=== PATIENT | female | born 1975 | race Hispanic/Latino ===

== ENCOUNTER → 2019-04-01 | Outpatient (CLI) | payer BC ==
--- NOTE | 2019-04-01 10:40 | Diagnostic Imaging Report ---
Abdominal ultrasound. History: Abdominal pain. Comparison: None available. Discussion: Transverse and longitudinal images of the abdomen were obtained demonstrating a liver of normal size and echogenicity measuring 12.2 cm in length. The portal vein is patent with hepatopetal flow and is within normal limits measuring 8 mm in diameter. The biliary tree is within normal limits with the common bile duct measuring 2 mm in diameter. The gallbladder is normal without evidence of stones, wall thickening, or pericholecystic fluid. The sonographic Forte's sign was negative. The kidneys are normal in size and echogenicity bilaterally without evidence of hydronephrosis, stones, or mass. The right kidney measures 11.4 cm and the left kidney measures 10.8 cm in length. The spleen is normal in size and appearance measuring 10 cm in length. The pancreatic head and body are visualized and are normal in appearance. The abdominal aorta and IVC are within normal limits. There is no evidence of free fluid. IMPRESSION: Normal abdominal ultrasound. Signed by: Hank Baugh on 04/01/2019 10:37 AM
== END ==
LOC: US 09:29
PROVIDERS: ATTEND Family Medicine
DX: R10.9 Unspecified abdominal pain (principal)
CPT/HCPCS: 76700

== ENCOUNTER → 2019-04-30 | Day surgery (SDC) | payer BC ==
[~2019-04-30] MED LIST: CEFAZOLIN SOD 1 GM VIAL ONE; DESFLURANE 240 ML BTL INH ONE; DEXAMETHASONE SOD PHOS INJ 4 MG/ML VIAL ONE; FENTANYL CITRATE/PF 100MCG/2 ML INJ ONE; KETOROLAC TROMETHAMINE 30 MG/ML VIAL ONE; LIDOCAINE HCL 2% LOCAL INJ 5 ML SDV VIAL INJ ONE; METHYLERGONOVINE MALEATE 0.2 MG/ML AMP ONE; MIDAZOLAM HCL 2 MG/2 ML VIAL ONE; ONDANSETRON HCL INJ 2MG/ML 2ML 2 MG/ML VIAL ONE; PRE-NATAL VITAMIN PO; PROPOFOL IV EMULSION 10 MG/ML 20 ML VIAL ONE
--- OUTSIDE RECORDS SUMMARY | 2019-04-30 09:51 | XMS REPORT ---
[facility] Address Unknown Phone Unavailable Care Team Providers Care Student Support Services Director Name Role Phone RADHA STORM Unavailable Unavailable Payers Payer Name Policy Type Policy Number Effective Date Expiration Date Problems This patient has no known problems. Allergies, Adverse Reactions, Alerts Allergy Name Allergy Type Status Severity Reaction(s) Onset Date Inactive Date Treating Clinician Comments No Known Allergies DA Active U 2013-10-28 00:00:00 No Known Contrast Allergies DA Active U 2007-10-17 00:00:00 No Known Drug Allergies DA Active U 2007-10-17 00:00:00 No Known Food Allergies DA Active U 2007-10-17 00:00:00 No Known Other Allergies DA Active U 2007-10-17 00:00:00 Medications This patient has no known medications. Results Test Description Test Time Test Comments Text Results Atomic Results Result Comments URINALYSIS COMPLETE 2019-04-28 04:30:00 UA COLOR (test code=COLU) RED YELLOW UA APPEARANCE (test code=APPU) CLOUDY CLEAR UA GLUCOSE DIPSTICK (test code=DGLUU) NEGATIVE mg/dL NEGATIVE UA BILIRUBIN DIPSTICK (test code=BILU) NEGATIVE NEGATIVE UA KETONE DIPSTICK (test code=KETU) TRACE mg/dL NEGATIVE UA SPECIFIC GRAVITY (test code=SGU) 1.025 1.001-1.035 UA BLOOD DIPSTICK (test code=RICK) 3+ (Large) NEGATIVE UA PH DIPSTICK (test code=JOSE DE JESUS) 6.5 5.0-8.0 UA PROTEIN DIPSTICK (test code=PROU) 100 (2+) mg/dL Neg-15 UA UROBILINIOGEN DIPSTICK (test code=URO) 1 mg/dL (1+) mg/dL 0.0-0.2 UA NITRITE DIPSTICK (test code=LACEY) POSITIVE NEGATIVE UA LEUKOCYTE ESTERASE W REFLEX (test code=LEUUR) 1+ NEGATIVE UA WBC (test code=WBCU) 0-5 per HPF 0-5 UA RBC (test code=RBCU) >100 per HPF 0-5 UA EPITHELIAL CELLS (test code=EPIU) Few (2-5/hpf) per HPF Few UA BACTERIA (test code=BACU) FEW per HPF NONE Urine Source? Clean CatchURINALYSIS [id number] 04:16:00* Test Item Value Reference Range Comments UA COLOR (test code=COLU) RED YELLOW UA APPEARANCE (test code=APPU) CLOUDY CLEAR UA GLUCOSE DIPSTICK (test code=DGLUU) NEGATIVE mg/dL NEGATIVE UA BILIRUBIN DIPSTICK (test code=BILU) NEGATIVE NEGATIVE UA KETONE DIPSTICK (test code=KETU) TRACE mg/dL NEGATIVE UA SPECIFIC GRAVITY (test code=SGU) 1.025 1.001-1.035 UA BLOOD DIPSTICK (test code=RICK) 3+ (Large) NEGATIVE UA PH DIPSTICK (test code=JOSE DE JESUS) 6.5 5.0-8.0 UA PROTEIN DIPSTICK (test code=PROU) 100 (2+) mg/dL Neg-15 UA UROBILINIOGEN DIPSTICK (test code=URO) 1 mg/dL (1+) mg/dL 0.0-0.2 UA NITRITE DIPSTICK (test code=LACEY) POSITIVE NEGATIVE UA LEUKOCYTE ESTERASE W REFLEX (test code=LEUUR) 1+ NEGATIVE UA WBC (test code=WBCU) per HPF 0-5 UA RBC (test code=RBCU) per HPF 0-5 UA EPITHELIAL CELLS (test code=EPIU) per HPF Few UA BACTERIA (test code=BACU) per HPF NONE Urine Source? 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 LMP 02/19/2019, gestational age by dates 19 weeks 4 days, MASON by dates 11/26/2019. EXAM: TRANSABDO ADRYAN AND TRANSVAGINAL PELVIC ULTRASOUNDS COMPARISON: None TECHNIQUE: Transabdominal and endovaginal scans with color and pulse wave Doppler interrogation were performed. FINDINGS: UTER US: Mildly enlarged measuring 10.1 x 6.0 x 7.8 cm. No myometrial masses are seen. 1.3 cm nabothian cyst seen in cervix. Endometrium: 24.0 mm AP d imension. Endometrium is thickened but homogeneous. There is a small 0.58 x 0.47 x 0.50 cm cystic structure surrounded by decidual reaction in the posterior endometrial stripe which has the appearance of an early intraute rine gestational sac. No visible fetus or yolk sac at this time. No subcho rionic hemorrhage. RIGHT OVARY: Not visualized. LEFT OVARY: 2.9 x 1.3 x 1.7 cm No discrete left ovarian mass. Ovarian b lood flow documented with Doppler. OTHER: No complex adnexal mass . No free fluid in cul-de-sac. IMPRESSION: 1. Small 0.5 cm cystic structure in the posterior endometrial stripe is probably a v steph early less than 5 week intrauterine gestational sac. Recommend follo wing serial beta hCG levels and if indicated, follow-up pelvic ultrasoun d. 2. Right ovary is not visualized but there is no evidence for ectopic at this time. at 0126 Reported and signed by: Jesusita Velasquez MD PAGE 1 Signed Report (CONTINUED) Name: SWAPNA SELBY [facility] : 1975 Age/S: 43 / F [address] [facility] Unit #: [id number] Loc: [place] [address] Phys: Darell Vasquez ACCOUNTING MACHINE SERVICER Acct: [id number] Dis Date: Status: REG ER PHONE #: [phone] Exam Date: 04/28/201954 FAX #: [phone] Reason: PELVIC PAIN EXAMS: CPT CODE: [id number] DUP AB/PEL/SC COMP 05363 <Continued> CC: Kailee Arzola MD; Darell Vasquez NP Technologist: ARNOLD ORNELAS RDMS Trntnb Date/Time: 04/28/2019 (012) [email or web address].CLW Orig Print D/T: S: 04/28/2019 (0129) Probe: PAGE 2 Signed Report - US PREG 1ST TRIMTR 2019-04-28 01:26:00 Name: SWAPNA SELBY [facility] : 1975 Age[facility]S: 43 / [facility] [address] [facility] #: [id number] Loc: [place] [address] Phys: Darell Vasquez ACCOUNTING MACHINE SERVICER Acct: [id number] Dis Date: Status: REG ER PHONE #: [phone] Exam Date: 04/28/201954 FAX #: [phone] Reason: VAGINAL BLEEDING/PELVIC PAIN EXAMS: CPT CODE: [id number] US PREG 1ST TRIMTR 07699 DICTATION LOCATION: [facility] HISTORY: Female, 43 years of age with pelvic pain and vaginal bleeding during 1st trimester . LMP 02/19/2019, gestational age by dates 19 weeks 4 days, MASON by dates 11/26/2019. EXAM: TRANSABDOMINAL AND TRANSVAGINAL PELVIC ULTRASOUNDS COMPARISON: None TECHNIQUE: Transabdominal and endovaginal scans with color and pulse wave Doppler interrogation were performed. FINDINGS: UTERUS: Mildly enlarged measuring 10.1 x 6.0 x 7.8 cm. No myometrial masses are seen. 1.3 cm nabothian cyst seen in cervix. Endometrium: 24.0 mm AP dimension. Endometrium is thickened but homogeneous. There is a small 0.58 x 0.47 x 0.50 cm cystic structure surrounded by decidual reaction in the posterior endometrial stripe which has the appearance of an early intrauterine gestational sac. No visible fetus or yolk sac at this time. No subcho rionic hemorrhage. RIGHT OVARY: Not visualized. LEFT OVARY: 2.9 x 1.3 x 1.7 cm No discrete left ovarian mass. Ovarian b lood flow documented with Doppler. OTHER: No complex adnexal mass . No free fluid in cul-de-sac. IMPRESSION: 1. Small 0.5 cm cystic structure in the posterior endometrial stripe is probably a v steph early less than 5 week intrauterine gestational sac. Recommend follo wing serial beta hCG levels and if indicated, follow-up pelvic ultrasoun d. 2. Right ovary is not visualized but there is no evidence for ectopic at this time. at 0126 Reported and signed by: Jesusita Velasquez MD PAGE 1 Signed Report (CONTINUED) Name: SWAPNA SELBY [facility] : 1975 Age/S: 43 / F [address] Unit #: [id number] Loc: [place] [address] Phys: Darell Vasquez ACCOUNTING MACHINE SERVICER Acct: [id number] Dis Date: Status: REG ER PHONE #: [phone] Exam Date: 04/28/201954 FAX #: [phone] Reason: VAGINAL BLEEDING/PELVIC PAIN EXAMS: CPT CODE: [id number] US PREG 1ST TRIMTR 33376 <Continued> CC: Kailee Arzola MD; Darell Vasquez NP Technologist: ARNOLD ORNELAS RDMS Trnscb Date/Time: 04/28/2019 (012) [email or web address] Orig Print D/T: S: 04/28/2019 (0129) Probe: PAGE 2 Signed Report - US PREG UT [id number] 01:26:00 Name: SWAPNA SELBY [facility] : 1975 Age/S: 43 / F [address] Unit #: [id number] Loc: [place] [address] Phys: Darell Vasquez ACCOUNTING MACHINE SERVICER Acct: [id number] Dis Date: Status: REG ER PHONE #: [phone] Exam Date: 04/28/2019 005 FAX #: [phone] Reason: PELVIC PAIN EXAMS: CPT CODE: [id number] US PREG UT TRANSVAGINAL 87675 DICTATION LOCATION: H48 HISTORY: Female, 43 years of age with pelvic pain and vaginal bleeding during 1st trimester . LMP 02/19/2019, gestational age by dates 19 weeks 4 days, MASON by dates 11/26/2019. EXAM: TRANSABDOMINAL AND TRANSVAGINAL PELVIC ULTRASOUNDS COMPARISON: None TECHNIQUE: Transabdominal and endovaginal scans with color and pulse wave Doppler interrogation were performed. FINDINGS: UTERUS: Mildly enlarged measuring 10.1 x 6.0 x 7.8 cm. No myometrial masses are seen. 1.3 cm nabothian cyst seen in cervix. Endometrium: 24.0 mm AP dimension. Endometrium is thickened but homogeneous. There is a small 0.58 x 0.47 x 0.50 cm cystic structure surrounded by decidual reaction in the posterior endometrial stripe which has the appearance of an early intrauterine gestational sac. No visible fetus or yolk sac at this time. No subcho rionic hemorrhage. RIGHT OVARY: Not visualized. LEFT OVARY: 2.9 x 1.3 x 1.7 cm No discrete left ovarian mass. Ovarian b lood flow documented with Doppler. OTHER: No complex adnexal mass . No free fluid in cul-de-sac. IMPRESSION: 1. Small 0.5 cm cystic structure in the posterior endometrial stripe is probably a v steph early less than 5 week intrauterine gestational sac. Recommend follo wing serial beta hCG levels and if indicated, follow-up pelvic ultrasoun d. 2. Right ovary is not visualized but there is no evidence for ectopic at this time. at 0126 Reported and signed by: Jesusita Velasquez MD PAGE 1 Signed Report (CONTINUED) Name: SWAPNA SELBY [facility] : 1975 Age/S: 43 / F [address] [facility] Unit #: [id number] Loc: [facility] [place] [address] Phys: Darell Vasquez NP Acct: [id number] Dis Date: Status: REG ER PHONE #: [phone] Exam Date: 04/28/2019 0055 FAX #: [phone] Reason: PELVIC PAIN EXAMS: CPT CODE: [id number] PREG UT TRANSVAGINAL 57280 <Continued> CC: Kailee Arzola MD; Darell Vasquez NP Technologist: ARNOLD ORNELAS RDMS Trnscb Date/Time: 04/28/2019 (012) Jim Orig Print D/T: S: 04/28/2019 (0129) Probe: [id number] PAGE 2 Signed Report BASIC METABOLIC PANEL 2019-04-28 01:22:00* Test Item Value Reference Range Comments SODIUM (test code=NA) 141 mmol/L 136-145 POTASSIUM (test code=K) 3.9 mmol/L 3.5-5.1 CHLORIDE (test code=CL) 108.0 mmol/L 98-107 CARBON DIOXIDE (test code=CO2) 25.0 mmol/L 21-32 ANION GAP (test code=GAP) 11.9 10-20 GLUCOSE (test code=GLU) 100 mg/dL 74-106 BLOOD UREA NITROGEN (test code=BUN) 7 mg/dL 7-18 GLOMERULAR FILTRATION RATE (test code=GFR) > 60 mL/min >=60 Estimated GFR by using Modified MDRD formula.Chronic kidney disease is defined as either kidney damageor GFR <60 mL/min/1.73 m2 for >3 months. CREATININE (test code=CREAT) 0.60 mg/dL 0.55-1.02 Note change in reference range due to change in reagent. BUN/CREATININE RATIO (test code=BUN/CREA) 11.0 10-20 CALCIUM (test code=CA) 8.8 mg/dL 8.5-10.1 HCG SERUM [id number] 01:22:00* Test Item Value Reference Range Comments HCG SERUM BETA (test code=HCG) 7262.0 mIU/mL 0-3 Interfering substances present in the serum of somepatients may cause a false-positive result in this assay.Questionable elevations in serum hCG should be confirmedwith a urine hCG. Suspected Trophoblastic Neoplasms shouldnot be diagnosed based on serun hCG/beta hCG alone. Theymust be confirmed by clinical history and tissue diagnosis.INTERPRETATION:B-HCG LEVELS <5 SHOULD BE CONSIDERED "NEGATIVE." *WHEN BODERLINE RESULTS ARE ENCOUNTERED,PATIENT SAMPLESSHOULD BE REDRAWN 48 HOURS. 0-1 WEEKS AFTER CONCEPTION 5-50 MIU/ML1-2 WEEKS AFTER CONCEPTION 50-500 MIU/ML2-3 WEEKS AFTER CONCEPTION 100 -5,000 MIU/ML3-4 WEEKS AFTER CONCEPTION 500-10,000 MIU/ML4-5 WEEKS AFTER CONCEPTION 1000 -50,000 MIU/ML5-6 WEEKS AFTER CONCEPTION 10,000-100,000 MIU/ML6-8 WEEKS AFTER CONCEPTION 15,000- 200,000 MIU/ML2-3 MONTHS AFTER CONCEPTION 10,000-100,000 MIU/ML BASIC METABOLIC [id number] 01:05:00* Test Item Value Reference Range Comments SODIUM (test code=NA) 141 mmol/L 136-145 POTASSIUM (test code=K) 3.9 mmol/L 3.5-5.1 CHLORIDE (test code=CL) 108.0 mmol/L 98-107 CARBON DIOXIDE (test code=CO2) mmol/L 21-32 ANION GAP (test code=GAP) 10-20 GLUCOSE (test code=GLU) mg/dL 74-106 BLOOD UREA NITROGEN (test code=BUN) mg/dL 7-18 GLOMERULAR FILTRATION RATE (test code=GFR) mL/min >=60 CREATININE (test code=CREAT) mg/dL 0.55-1.02 BUN/CREATININE RATIO (test code=BUN/CREA) 10-20 CALCIUM (test code=CA) mg/dL 8.5-10.1 HCG SERUM [id number] 01:05:00* Test Item Value Reference Range Comments HCG SERUM BETA (test code=HCG) mIU/mL 0-3 CBC W/O [id number] 00:59:00* Test Item Value Reference Range Comments WHITE BLOOD CELL (test code=WBC) 11.5 K/mm3 4.5-12.5 RED BLOOD CELL (test code=RBC) 4.32 mill/mm3 3.7-5.2 HEMOGLOBIN (test code=HGB) 12.6 gram/dL 11.5-15.5 HEMATOCRIT (test code=HCT) 38.0 % 36.0-46.0 MEAN CELL VOLUME (test code=MCV) 88.0 fL 80-98 MEAN CELL HGB (test code=MCH) 29.2 picogram 27.0-33.0 MEAN CELL HGB CONCETRATION (test code=MCHC) 33.2 gram/dL 33.0-36.0 RED CELL DISTRIBUTION WIDTH (test code=RDW) 12.7 % 11.6-16.2 PLATELET COUNT (test code=PLT) 231 K/mm3 150-450 MEAN PLATELET VOLUME (test code=MPV) 11.8 fL 6.7-11.0 US ABDOMEN [id number] 10:36:00 [place] [address] Patient Name: SWAPNA SELBY MR #: [id number] : 1975 Age/Sex: 43/F Req #: [id number] Adm Physician: Ordered by: DOTTY GORDON, RADHA Mejia MD Report #: [id number] Location: US Room/Bed: Procedure: [id number] US/US ABDOMEN COMPLETE Exam Date: 04/01/19 Exam Smith e: 1000 REPORT STATUS: Signed Abdominal ultrasound. History: Abdominal pain. Comparison: None av ailable. Discussion: Transverse and longitudinal images of the abdomen were obtained demonstrating a liver of normal size and echogenicity measuring 12.2 cm in length. The portal vein is patent with hepatopetal flow and is within normal limits measuring 8 mm in diameter. The biliary tree is within normal limits with the common bile duct measuring 2 mm in diameter. The gallbladder is normal without evidence of stones, wall thickening, or perich olecystic fluid. The sonographic Forte's sign was negative. T he kidneys are normal in size and echogenicity bilaterally without evidence of hydronephrosis, stones, or mass. The right kidney measures 11.4 cm and the left kidney measures 10.8 cm in length. The spleen is normal in size and lori earance measuring 10 cm in length. The pancreatic head and body are visualize d and are normal in appearance. The abdominal aorta and IVC are within normal limits. There is no evidence of free fluid. IMPRESSION: Normal abd ominal ultrasound. Signed by: Hank Baugh on 04/01/2019 10:37 AM Di ctated By: HANK BAUGH MD 1037 COPY TO: KATY STORM TO
[2019-04-30 11:12] LABS: BASOPHILS # (AUTO) 0.1 (0.0-0.1); BASOPHILS % 0.7 % (0.0-1.0); EOSINOPHILS # (AUTO) 0.3 (0.0-0.4); EOSINOPHILS % 3.5 % (0.0-6.0); HEMATOCRIT 39.9 % (34.2-44.1); HEMOGLOBIN 13.1 g/dL (12.0-16.0); LYMPHOCYTES # (AUTO) 1.7 (1.0-3.2); LYMPHOCYTES % 23.1 % (18.0-39.1); MEAN CORPUSCULAR HEMOGLOBIN 28.8 pg (28-32); MEAN CORPUSCULAR HGB CONC 32.8 g/dL (31-35); MEAN CORPUSCULAR VOLUME 87.7 fL (81-99); MONOCYTES # (AUTO) 0.5 (0.2-0.8); MONOCYTES % 6.2 % (4.4-11.3); NEUTROPHILS # (AUTO) 4.8 (2.1-6.9); NEUTROPHILS % 65.6 % (38.7-80.0); PLATELET COUNT 246 x10e3/uL (140-360); RED BLOOD COUNT 4.55 x10e6/uL (3.6-5.1); RED CELL DISTRIBUTION WIDTH 12.7 % (11.7-14.4)
[2019-04-30 14:02] VITALS: BP 116/59
--- NOTE | 2019-04-30 18:58 | Operative Report ---
DATE OF PROCEDURE: SURGEON: Cookie Infante MD PREOPERATIVE DIAGNOSIS: Incomplete . POSTOPERATIVE DIAGNOSIS: Incomplete . PROCEDURE: Suction and evacuation of retained products of conception. COMPLICATIONS: None. ESTIMATED BLOOD LOSS: 20 mL. DESCRIPTION OF PROCEDURE: The patient was taken to the OR. General anesthesia was induced. She was prepped and draped in a sterile fashion and placed in dorsal lithotomy position. After examination under anesthesia revealed a retroverted uterus, mobile. No adnexal masses. A weighted speculum was placed inside the vagina. Cervix was grasped with an Allis clamp. The cervix was already dilated and Hegar 8 was passed through this into the uterine cavity without difficulty. Suction and evacuation of retained products of conception. Sharp curettings obtained and suction and curette was reintroduced and found cavity to be empty. The patient tolerated the procedure well. Lap, instrument, and needle count was correct x2 at the end of procedure. Cookie Infante MD DD/RIGO /[id number]
== END | disposition home or self-care (01) ==
LOC: OR 09:48
PROVIDERS: ATTEND Obstetrics & Gynecology
DX: O03.4 Incomplete spontaneous abortion without complication (principal); K21.9 Gastro-esophageal reflux disease without esophagitis
CPT/HCPCS: 36415; 59812; 85025; 88305; 93005; J0690; J1100; J1885; J2001; J2210; J2250; J2405; J2704; J3010